=== PATIENT | male | born 1940 | race Caucasian/White ===

== ENCOUNTER 2019-03-20 07:41 | Day surgery (SDC) | payer OTHER, BC ==
[~2019-03-20] VITALS: Ht 175.3 cm; Wt 58.1 kg
[~2019-03-20 07:41] MED LIST: ELIQUIS5 MG PO; FUROSEMIDE 20 M20 MG PO; KLOR-CON M2020 MEQ PO; LEVO-T50 MCG PO; MIDODRINE HCL 55 M1 PO; PLAQUENIL200 MG PO; TYLENOL EXTRA500 MG PO; TYLENOL325 M1 PO; VITAMIN D31250 MC1 PO; VITAMIN D325 MC3 PO
[2019-03-20 08:36] LABS: HEMATOCRIT 33.1 % (42.0-52.0); HEMOGLOBIN 10.5 gm/dL (14.0-18.0)
[2019-03-20 08:37] VITALS: BP 135/68
[2019-03-20 08:42] LABS: CALCIUM 9.8 mg/dL (8.5-10.1); CREATININE 2.3 mg/dL (0.7-1.3); POTASSIUM 4.2 mmol/L (3.5-5.1)
[2019-03-20 08:48] LABS: APTT 28.7 Seconds (24.5-32.8); INR 1.2; PROTIME 12.2 Seconds (9.3-11.4)
[2019-03-20 08:55] LABS: ALBUMIN 3.1 g/dL (3.4-5.0); TOTAL BILIRUBIN 0.6 mg/dL (<0.1-1.0); TOTAL PROTEIN 8.8 g/dL (6.4-8.2)
[2019-03-20 11:20] VITALS: BP 135/68
--- NOTE | 2019-03-24 09:21 | O ---
[facility] [place] [address] OPERATIVE REPORT Name: FAMILIA URIARTE Room #: DEP [facility].#: [id number] Admission: 03/20/19 Attend Phys: BERNICE Hahn Discharge: 03/20/19 Date of : 42 Report #: [id number] THIS REPORT FOR: cc: Shahram Anguiano,Tripp Barrow DPM ~ CC: Shahram Zhong DATE OF SERVICE: 03/20/2019 SURGEON: Tripp Zhong DPM PREOPERATIVE DIAGNOSIS: Hallux valgus bunion deformity, right foot. POSTOPERATIVE DIAGNOSIS: Hallux valgus bunion deformity, right foot. PROCEDURE: Silver bunionectomy, first metatarsal, right foot. ANESTHESIA: General endotracheal. HEMOSTASIS: None. COMPLICATIONS: None. DESCRIPTION OF THE PROCEDURE: The patient was taken to the OR in satisfactory condition and placed on the table in the supine position. Following satisfactory administration of IV sedation, a total of 10 mL of a 50:50 mixture of 1% plain lidocaine and 0.5% plain Marcaine was used in a [place] block around the first MPJ right foot and the foot was then prepped and draped in the usual sterile manner. Attention was directed to the dorsal first MPJ where a linear incision was made medial to the course of the extensor tendon. The incision was deepened through sharp and blunt dissection. All bleeders were clamped and bovied as deemed necessary. The incision was carried down through the subcutaneous tissue to the level of the joint capsule. A linear capsulotomy was made medial to the tendon and the capsular tissue was reflected sharply from the bone. The medial eminence of the first metatarsal head was exposed from the wound. A power sagittal saw was used to resect the dorsal and medial aspect of the first metatarsal head. It was then noted that significant osteopenia was present. A portion approximately 2 mm of cortex punctured into the medullary canal, but no other complications were noted. A bone rongeur and a [facility] bone rasp and jones rasp were used to smooth and reshape the dorsal and medial aspects of the first metatarsal head. A copious sterile saline flush was performed. Excellent reduction of the original deformity was appreciated and no osseous prominence was noted underlying the ulceration on the medial aspect of the first metatarsal. A portion of cancellous bone was packed into the cortical [address] [address] OPERATIVE REPORT Name: FAMILIA URIARTE Room #: DEP [facility] Dianne#: [id number] Admission: 03/20/19 Attend Phys: BERNICE Hahn Discharge: 03/20/19 Date of : 42 Report #: [id number] defect on the dorsal aspect of the first metatarsal. The capsular tissue was coapted using #3-0 Vicryl in a continuous running fashion. Subcutaneous tissue was closed using #4-0 Vicryl in a simple interrupted manner. Skin closure was obtained using #4-0 Prolene in a horizontal mattress fashion. The skin incision was dressed with Betadine impregnated Adaptic, 4 x 4 gauze overlying Christy. Normal vascular status was noted to the first toe, right foot. An Wally bandage was then applied to the right foot and ankle. The patient tolerated the procedure and anesthesia well and left the OR in satisfactory condition with vital signs stable. <ELECTRONICALLY SIGNED> By: Tripp Zhong DPM 03/24/19 0921 [id number] Tripp Zhong DPM /nt
== END 2019-03-20 12:25 | disposition home or self-care (01) ==
LOC: OR 07:41 → TBA 08:16 → OR 12:25
PROVIDERS: Student in an Organized Health Care Education/Training Program
DX: M20.11 Hallux valgus (acquired), right foot (principal); M19.90 Unspecified osteoarthritis, unspecified site; E03.9 Hypothyroidism, unspecified; N18.3 Chronic kidney disease, stage 3 (moderate); Z98.890 Other specified postprocedural states; Z79.899 Other long term (current) drug therapy; Z95.0 Presence of cardiac pacemaker; Z98.41 Cataract extraction status, right eye; Z98.42 Cataract extraction status, left eye; Z79.01 Long term (current) use of anticoagulants
CPT/HCPCS: 50010; 50101; 50386; 50951; 56526; 57092; 62110; 62850; 70005